=== PATIENT | male | born 2000 | race Caucasian/White ===

== ENCOUNTER 2022-04-26 23:20 | Emergency (ER) | payer BC ==
[2022-04-26] MEDS ORDERED: Fluorescein 1 MG Ophth Strip EYELF STA (23:55)
[2022-04-26] MEDS ORDERED: Proparacaine 0.5% Ophth Soln 15 ML Bottle EYELF STA (23:55)
[2022-04-27] MEDS ORDERED: Erythromycin Base 0.5% Ophth Oint 1 GM Tube EYELF STA (00:12)
== END 2022-04-27 00:35 | disposition home or self-care (01) ==
LOC: JD.ED 23:20
DX: T15.92XA Foreign body on external eye, part unspecified, left eye, initial encounter (principal)
CPT/HCPCS: 65222; 99283; A9270